=== PATIENT | male | born 1970 | race Caucasian/White ===

== ENCOUNTER 2025-01-10 04:25 | Emergency (ER) | payer SELFPAY ==
[2025-01-10 04:39] VITALS: BP 153/112; PULSE 55; RESP 20; TEMP 36.7; O2SAT 97; BMI 36.5
--- NOTE | 2025-01-10 05:55 | XRR_ITS ---
PROCEDURE INFORMATION: Exam: XR Cervical Spine Exam date and time: 01/10/2025 6:04 AM Age: 54 years old Clinical indication: Neck pain and radicular pain (radiculopathy); Location of radicular pain not specified; C/O left sided neck pain radiating into shoulder. No injury. TECHNIQUE: Imaging protocol: Radiologic exam of the cervical spine. Views: 2 or 3 views. COMPARISON: No relevant prior studies available. FINDINGS: Bones/joints: There is normal alignment of the cervical vertebral column. No subluxations are identified. There is mild disc space narrowing with small osteophytes at C2-C3, C3-C4, C4-C5, C5-C6. There are mild degenerative changes involving the facets. Soft tissues: No acute soft tissue abnormalities are noted. The lung apices are normal. XR/XR cervical spine 3V* [id number] IMPRESSION: 1. Mild spondylosis.
--- NOTE | 2025-01-10 06:24 | W.ED.NECK ---
HPI - Neck Pain/Injury General: Chief Complaint: Neck Pain/Injury Stated Complaint: neck pain into shoulder and chest Time Seen by Provider: 01/10/25 05:50 Source: patient Mode of arrival: ambulatory Limitations: no limitations History of Present Illness: 54-year-old male states that he has been having left-sided neck pain has been going on for 2 months. He states it is worse with palpation along when he turns his head to the left. Does not remember any specific injuries denies any weakness in his extremities denies any midline pain denies any headaches. Associated symptoms: Denies headache(s) or nausea Related Data Previous Rx's ?Medication ?Instructions ?Recorded methocarbamol 750 mg tablet 750 mg PO Q6H PRN spasms #20 tabs 01/10/25 naproxen 500 mg tablet (Naprosyn) 500 mg PO BID PRN pain #20 tabs 01/10/25 Allergies Allergy/AdvReac Type Severity Reaction Status Date / Time Penicillins Allergy ALGY-Hives Verified 01/10/25 06:24 Review of Systems Const: Denies: fever(s), chills, body aches or change in appetite ENMT: Denies: throat pain or dental pain Card: Denies: chest pain Resp: Denies: dyspnea GI: Denies: abdominal pain, nausea, vomiting or diarrhea Musc: Reports: neck pain; Denies: back pain Skin/Breast: Denies: rash Neuro: Denies: headache(s) Physical Exam Const: COMMON NORMALS: no acute distress, patient oriented x3 and healthy appearing HENMT: COMMON NORMALS: normocephalic and atraumatic HEAD & SCALP: normocephalic and atraumatic Neck/C-Spine: OTHER: Tenderness noted to left side the neck does have pain when he looks to the left Chest: COMMONS NORMALS: normal inspection of the chest and normal palpation of entire chest wall Resp: COMMON NORMALS: normal respiratory effort, No retractions, No use of accessory muscles and clear to auscultation bilaterally AUSCULTATION: clear to auscultation bilaterally Cardio: COMMON NORMALS: regular rate, regular rhythm and No murmurs present (Cardio) RATE: regular rate RHYTHM: regular rhythm GI: COMMON NORMALS: Normal to inspection, nondistended, normoactive bowel sounds present, Soft to palpation, non-tender and no masses PALPATION: Yes Soft to palpation Extremity: COMMON NORMALS: normal to inspection and full ROM Neuro: COMMON NORMALS: patient oriented x3, moves all extremities and no focal motor deficits Psych: COMMON NORMALS: mental status grossly normal, Normal thought process present and cooperative THOUGHT PROCESS: Normal thought process present Skin: COMMON NORMALS: no rashes or lesions noted and no wounds GENERAL SKIN EXAM: no rashes or lesions noted Course Vital Signs: Vital signs: Vital Signs Temperature 98.1 F 01/10/25 04:39 Pulse Rate 55 L 01/10/25 04:39 Respiratory Rate 20 H 01/10/25 04:39 Blood Pressure 153/112 01/10/25 04:39 Pulse Oximetry 97 01/10/25 04:39 MDM - Neck Pain/Injury Medical Decision Making Patient presents here with neck pain is likely muscular in nature will place him on anti-inflammatory muscle relaxant he is stable for discharge follow-up PCP return if worsening. Medical Records I reviewed the patient's medical records. XR interpretation done by ED provider, pending radiology final review ED provider radiology interpretation(s): X-ray c spine no acute abnormality Discharge Plan Discharge Patient Disposition: Home Clinical Impression: Neck pain Condition: Stable Prescriptions: New methocarbamol 750 mg tablet 750 mg PO Q6H PRN (Reason: spasms) Qty: 20 0RF naproxen [Naprosyn] 500 mg tablet 500 mg PO BID PRN (Reason: pain) Qty: 20 0RF Discharge Orders: Discharge ED (Routine); Ordered 01/10/25 Ordered By: Douglas Rojas Discharge Diet: Advance as tolerated Discharge Activity: Resume usual activity Patient Instructions: Neck Pain (ED) Print Language: Ecuadorean Coding Level of Care Code ED [employer] Supervisor for Joseph Thomas
[2025-01-10 06:38] VITALS: BP 159/104; PULSE 56; RESP 17; O2SAT 96
== END 2025-01-10 06:40 | disposition home or self-care (01) ==
PROVIDERS: Emergency Provider Emergency Medicine
DX: M54.2 Cervicalgia (principal)
CPT/HCPCS: 72040; 96372; 99284; J1885; J9999